=== PATIENT | male | born 1970 | race Caucasian/White ===

== ENCOUNTER 2022-01-28 17:30 | Emergency (ER) | payer SELFPAY ==
[2022-01-28 17:36] VITALS: BP 116/69; PULSE 75; RESP 16; TEMP 36.8; O2SAT 97
--- NOTE | 2022-01-28 17:43 | ED.SKABFB ---
HPI - Skin/Abscess/Foreign Bdy General Chief complaint: Skin/Abscess/Foreign Body Stated complaint: Rash on back Time Seen by Provider: 01/28/22 17:44 Source: patient and RN notes reviewed Mode of arrival: ambulatory Limitations: no limitations History of Present Illness HPI narrative: 51-year-old male presents with concern for rash to his back. He reports approximately 1 week ago noticing a blisterlike rash on the left side of his back. He reports it has since spread to the left lateral side. He denies drainage from the area. Denies pain or itching. He denies any other rash. Denies exposure to plants, poison lluvia. He denies swollen lips, swollen tongue, shortness of breath, nausea, vomiting, fever MD complaint: rash Related Data Allergies Allergy/AdvReac Type Severity Reaction Status Date / Time No Known Allergies Allergy Verified 01/28/22 17:45 Review of Systems Review of Systems: CONSTITUTIONAL: Denies malaise, chills, sweats, or fever. EYES: Denies redness, or discharge. ENT: Denies rhinorrhea, congestion, swollen lips, swollen tongue CARDIOVASCULAR: Denies chest pain, palpitations, or edema. RESPIRATORY: Denies cough or dyspnea. GASTROINTESTINAL: Denies abdominal pain, nausea, vomiting SKIN: Reports rash on his back and left side MUSCULOSKELETAL: Denies joint painor myalgia. NEUROLOGIC: Denies headache. All systems reviewed & are unremarkable except as noted in HPI and below PMFSH Comments At time of signature, agree with nursing past medical, surgical, social and family history. There is no relevant family history pertinent to the presenting complaint Exam Narrative: GENERAL: Well-appearing, well-nourished, and in no acute distress. HEAD: Normocephalic, atraumatic. EYES: PERRLA, conjunctivae clear, and EOMI. ENT: Mucous membranes moist. Oropharynx without edema, erythema or lesions. NECK: Supple. No lymphadenopathy CHEST: Clear to auscultation. No respiratory distress. HEART: Regular rate and rhythm. SKIN: Warm, dry. Zosteriform rash noted to the left side back adjacent to the spine, not crossing midline, another patch of vesicles noted to the left lateral side NEURO: Alert and oriented x3. PSYCH: Normal mood and affect Course Course Emergency Course: Patient is aware of diagnosis, understands and agrees to treatment plan. Anticipatory guidance given. Patient agrees to follow-up as directed and is aware of reasons to seek care at the emergency department. Portions of this record may have been created with voice recognition software Level of Care: Express Care Visit Vital Signs Vital signs: Vital Signs Temperature 98.3 F 01/28/22 17:36 Pulse Rate 75 01/28/22 17:36 Respiratory Rate 16 01/28/22 17:36 Blood Pressure 116/69 01/28/22 17:36 Pulse Oximetry 97 01/28/22 17:36 Oxygen Delivery Room Air 01/28/22 17:36 Temperature 98.3 F 01/28/22 17:36 Pulse Rate 75 01/28/22 17:36 Respiratory Rate 16 01/28/22 17:36 Blood Pressure 116/69 01/28/22 17:36 Pulse Oximetry 97 01/28/22 17:36 Oxygen Delivery Room Air 01/28/22 17:36 Reviewed. MDM - Skin/Abscess/Foreign Bdy MDM Narrative Medical decision making narrative: Does not appear at this time to be erythema multiforme, bullous, SJS, TEN; no evidence at this time to suggest RMSF, endocarditis or Lyme disease; patient looks well, nontoxic and is tolerating oral intake; no neurologic signs or symptoms; no headache, photophobia or neck pain; afebrile; appropriate for initial outpatient treatment; discussed the importance of follow-up, patient agrees; question, viral exanthema, contact dermatitis, allergic dermatitis, eczema, urticaria, shingles. No soft palate or uvula edema, no tongue, lip edema or other mucosal involvement, no respiratory compromise, no stridor, no wheezing, no wheezing, no history of syncope, no hypotension, no nausea, vomiting, or diarrhea. Instructed patient to go to nearest ER immediately for any worse
[2022-01-28 17:46] VITALS: BP 116/69; PULSE 75; RESP 16; TEMP 36.8; O2SAT 97
== END 2022-01-28 17:58 | disposition home or self-care (01) ==
PROVIDERS: Emergency Provider Nurse Practitioner
DX: B02.9 Zoster without complications (principal); E78.00 Pure hypercholesterolemia, unspecified; J45.909 Unspecified asthma, uncomplicated; Z98.52 Vasectomy status
CPT/HCPCS: 99213; G0463

== ENCOUNTER 2022-11-28 18:59 | Emergency (ER) | payer OTHER, SELFPAY ==
--- NOTE | ~2022-11-28 | XR_ITS ---
EXAMINATION: XR shoulder LT min 2V DATE: 11/28/2022 19:30 INDICATION: Left shoulder pain post fall down stairs TECHNIQUE: AP internally and externally rotated, AP oblique externally rotated and axillary views of the left shoulder were obtained. COMPARISON: None FINDINGS: Normal alignment. No fracture.Minimal glenohumeral osteoarthritis. Moderate osteoarthritis at the le ft acromioclavicular joint with large inferiorly directed osteophytes which could predispose towards rotator cuff disease. Visualized portion of the left lung are clear. Soft tissues are unremarkable. IMPRESSION: Moderate left acromioclavicular osteoarthritis with large inferiorly directed osteophytes. No acute o sseous abnormality. Reviewed, dictated and finalized at location A. IMPRESSION: Moderate left acromioclavicular osteoarthritis with large inferiorly directed o steophytes. No acute osseous abnormality.
[2022-11-28 19:01] VITALS: BP 128/72; PULSE 74; RESP 18; TEMP 36.4; O2SAT 97
--- NOTE | 2022-11-28 19:36 | ED.GENADULT ---
HPI - General Adult General Chief complaint: Upper Respiratory Infection Stated complaint: Fall Injury/Left Shoulder Source: patient Mode of arrival: ambulatory Limitations: no limitations History of Present Illness HPI narrative: Patient presents for evaluation of left shoulder pain since yesterday at 0300 after experiencing a fall at home. He states he mistakenly thought he was entering his bathroom when he walked into the basement stairway. He fell down about ten stairs. He hit his head. No LOC. He reports pain and decreased range of motion in the left shoulder. At rest pain is 2/10 severity but increases to 7/10 with movement. Denies paresthesias. He took 400 mg ibuprofen with some improvement in pain thereafter. He is left hand dominant. Related Data Allergies Allergy/AdvReac Type Severity Reaction Status Date / Time No Known Allergies Allergy Verified 01/28/22 17:45 Review of Systems Review of Systems: CONSTITUTIONAL: Denies fever, chills, or sweats. EYES: Denies visual changes, redness, or discharge. ENT: Denies rhinorrhea, congestion, sore throat, or otalgia. CARDIOVASCULAR: Denies chest pain, palpitations, or edema. RESPIRATORY: Denies cough or dyspnea. GASTROINTESTINAL: Denies abdominal pain, nausea, vomiting, or diarrhea. GENITOURINARY: Denies dysuria or hematuria. SKIN: Denies rash or itching. MUSCULOSKELETAL: Reports left shoulder pain and decreased range of motion. Denies back pain or myalgia. NEUROLOGIC: Denies headache, numbness, dizziness, or weakness. PSYCHIATRIC: Denies anxiety or depression. [facility] Past Medical History Medical History (Updated 11/28/22 @ 20:03 by CHRISTOPHER Milner, ) Hyperlipidemia Shoulder strain Surgical History Surgical History History of elbow surgery Family History Family History Mother Family history non-contributory Social History Social History Smoking status: Never smoker Substance use: never Gender identity (if verbalized by the patient): Male Sexual Orientation (if Verbalized by the Patient): Straight or Heterosexual Spiritual care concerns: No Exam Narrative: GENERAL: Well-appearing, well-nourished, and in no acute distress. HEAD: Normocephalic, atraumatic. EYES: PERRLA and EOMI. ENT: Nares clear, no rhinorrhea or epistaxis. Mucous membranes moist. Oropharynx without tonsillar hypertrophy exudate or other lesions. Bilateral TMs pearly adames nonbulging NECK: Supple. No adenopathy or masses. No carotid bruits or JVD CHEST: Clear to auscultation. No respiratory distress. No wheezes rales or rhonchi HEART: Regular rate and rhythm. No murmur heard. Normal peripheral pulses. ABDOMEN: Soft, nontender, nondistended, normal active bowel sounds. EXTREMITIES: No tenderness in the left shoulder. No deformity or obvious swelling. There is crepitus with passive range of motion of the left shoulder. He is only able to the elevate the left upper extremity at the shoulder joint to about the umbilicus. 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 NEURO: No focal deficits. Alert and oriented x3. PSYCH: Normal mood and affect. Course Course Emergency Course: This is a 52-year-old male who presented for evaluation of left shoulder pain. X-ray showed arthritic changes. I advised that he should follow-up with orthopedics due to decreased range of motion left shoulder to determine whether additional imaging such as MRI as clinically warranted. He was provided with a sling. Advised on RICE therapy. Will discharge with tramadol. Go to the ER for intractable pain. Patient in agreement plan of care Level of Care: Express Care Visit Vital Signs Vital signs: Vital Signs Temperature 36.4 C L 11/28/22 19:01 Pulse Rate 74 11/28/22 19:01 Respiratory Rate
== END 2022-11-28 20:15 | disposition home or self-care (01) ==
PROVIDERS: Emergency Provider Nurse Practitioner
DX: S46.912A Strain of unspecified muscle, fascia and tendon at shoulder and upper arm level, left arm, initial encounter (principal); W10.9XXA Fall (on) (from) unspecified stairs and steps, initial encounter; E78.5 Hyperlipidemia, unspecified
CPT/HCPCS: 73030; 99213; A4565; G0463

== ENCOUNTER 2022-12-16 08:02 | Outpatient (CLI) | payer OTHER, SELFPAY ==
--- NOTE | ~2022-12-16 | MR_ITS ---
MRI of the left shoulder Technique: Axial proton-density fat-sat images, coronal proton density fat-sat and T2 fat-sat images, and sagittal T1-weighted and T2 fat-sat images were acquired. Clinical History: Injury Findings: There is advanced degenerative changes AC joint, with large subacromial spur as well as bon y productive change at the inferior margin of the distal clavicle. Cortical clavicular, coracoacromia l, and coracohumeral ligaments appear intact. There are complete, full-thickness tears involving the entirety of the supraspinatus and extending ju st tendons, which are retracted to the level of glenoid. Fluid-filled gap measures approximately 4.0 x 4.3 cm in extent. Subscapularis tendon demonstrates Glenoid labrum is intact, without evidence of tear. Inferior glenohumeral ligament is intact. Small glenohumeral joint effusion is present, with fluid pa ssing through the rotator cuff defect into the subacromial/subdeltoid bursa. No muscle atrophy or leah ma evident. Humeral head is high riding. There is mild chondral malacia the medial humeral head. Prob able low-grade partial thickness articular surface tear. Tendon of the long head of the biceps is int act. Impression: Complete, full-thickness tears of the entirety of the supraspinatus and infraspinatus tendons, as det farrah above. Associated high riding humeral head. Low-grade partial thickness articular surface tear of the subscapularis tendon. Advanced AC joint degenerative change, as detailed above. Reviewed, dictated and finalized at location . Impression: Complete, full-thickness tears of the entirety of the supraspinatus and infrasp inatus tendons, as detailed above. Associated high riding humeral head. Low-grade partial thickness articular surface tear of the subscapularis tendon. Advanced AC joint degenerative change, as detailed above.
== END 2022-12-16 08:03 | disposition home or self-care (01) ==
PROVIDERS: Visit Provider Orthopaedic Surgery
DX: M75.122 Complete rotator cuff tear or rupture of left shoulder, not specified as traumatic (principal); M19.012 Primary osteoarthritis, left shoulder
CPT/HCPCS: 73221

== ENCOUNTER 2023-08-10 15:27 | Emergency (ER) | payer OTHER, SELFPAY ==
[2023-08-10 15:34] VITALS: BP 120/70; PULSE 107; RESP 16; TEMP 37.9; O2SAT 95
--- NOTE | 2023-08-10 15:57 | ED.GENADULT ---
HPI - General Adult General Chief complaint: Upper Respiratory Infection Stated complaint: cough/sneeze/sob Source: patient, RN notes reviewed and old records reviewed Mode of arrival: ambulatory Limitations: no limitations History of Present Illness HPI narrative: 53-year-old male presents to [facility] with complaint of sinus congestion, sinus pressure, cough for over a week. Patient taking [id number] medications with no relief. Patient states nasal discharge is blood tinged. MD complaint: Sinus congestion, pain Onset (ago): week(s) (1) Related Data Allergies Allergy/AdvReac Type Severity Reaction Status Date / Time No Known Allergies Allergy Verified 08/10/23 15:45 Review of Systems Constitutional: Constitutional: Reports no additional constitutional complaints, Denies body ache(s), Denies chills, Denies fatigue, Denies fever(s) and Denies headache(s) Eyes: Eyes: Reports no additional eye complaints and Denies blurry vision ENT: Reports system reviewed and no additional complaints, except as documented, Denies vertigo, Denies dizziness, Denies ear discharge, Denies otalgia, Denies facial pain, Denies headache(s), Reports nasal congestion, Reports nasal discharge ( blood tinged), Reports sinus pain, Reports sinus pressure and Denies sore throat Cardiovascular: Cardiovascular: Reports no additional cardiovascular complaints, Denies chest pain, Denies chest pain at rest, Denies rapid heart rate and Denies dyspnea Respiratory: Respiratory: Reports no additional respiratory complaints, Reports chest congestion, Reports cough, Denies pain on inspiration, Denies pain with cough and Denies dyspnea Gastrointestinal: Gastrointestinal: Denies abdominal pain, Denies diarrhea, Denies nausea and Denies vomiting Integumentary/Breasts: Skin/Breast: Denies rash Neurologic: Reports system reviewed and no additional complaints, except as documented, Denies vertigo, Denies dizziness and Denies headache(s) Endocrine: Endocrine: Denies fatigue PMFSH Past Medical History Medical History Hyperlipidemia Shoulder strain Surgical History Surgical History History of elbow surgery Family History Family History Mother Family history non-contributory Unknown Asthma Social History Social History Smoking status: Never smoker Substance use: never Gender identity (if verbalized by the patient): Male Sexual Orientation (if Verbalized by the Patient): Straight or Heterosexual Spiritual care concerns: No Comments At the time of my signature, I reviewed and agree with the nursing past medical, surgical, social, and family history. There is no relevant family history pertinent to the patient complaint. Exam Const: General: cooperative, healthy appearing, no acute distress and well nourished Nutritional Appearance: well nourished Orientation/consciousness: patient oriented x3 Limitations: no limitations HENMT: Head: normal to inspection and normocephalic Ears: external ears normal, TM's normal bilaterally, mastoids normal and Abnormal EAC present Face/Nose/Sinus: Abnormal mucous membranes and turbinates present boggy and erythematous and normal facial exam Face and sinus: normal facial exam and sinus tenderness Mouth: Yes Normal oral and palatal mucosa present, Yes oropharynx normal and Yes moist mucous membranes Throat: tonsils normal, uvula midline and no uvular edema Eyes: General: appearance normal, both eyes and all related structures Sclera: sclerae normal Pupils: Equal, round and reactive pupils present Resp: Effort & Inspection: normal respiratory effort, able to speak in complete sentences, no audible wheezes, no cough, no respiratory distress and no retractions Auscultation: clear to ausc
== END 2023-08-10 16:05 | disposition home or self-care (01) ==
PROVIDERS: Emergency Provider Registered Nurse
DX: J01.90 Acute sinusitis, unspecified (principal); E78.5 Hyperlipidemia, unspecified
CPT/HCPCS: 99213; G0463

== ENCOUNTER 2023-12-09 13:53 | Emergency (ER) | payer OTHER, SELFPAY ==
--- NOTE | 2023-12-09 13:55 | ED.BACK ---
HPI - Back Pain/Injury General Chief Complaint: Back Pain/Injury Stated Complaint: back pain Time Seen by Provider: 12/09/23 14:02 Source: patient, RN notes reviewed and old records reviewed Mode of arrival: ambulatory Limitations: no limitations History of Present Illness HPI Narrative: 53-year-old male presents to the [facility] with complaints of back pain. Patient reports left lower back pain. Was reaching while working on a car today between 1230 and 1:00pm when he reached felt a strain in the left lower back. No loss retention by bladder. No midline tenderness. No erythema, ecchymosis. No direct trauma. Walks with a normal gait. No numbness or tingling in extremities Did take ibuprofen Onset (ago): hour(s) (1-2) Related Data Allergies Allergy/AdvReac Type Severity Reaction Status Date / Time No Known Allergies Allergy Verified 12/09/23 14:18 Review of Systems Review of Systems: All systems reviewed & are unremarkable except as noted in HPI and below Constitutional: Constitutional: Reports no additional constitutional complaints Eyes: Eyes: Reports no additional eye complaints ENT: Reports system reviewed and no additional complaints, except as documented Cardiovascular: Cardiovascular: Reports no additional cardiovascular complaints, Denies chest pain and Denies dyspnea Respiratory: Respiratory: Reports no additional respiratory complaints, Denies chest congestion, Denies cough and Denies dyspnea Gastrointestinal: Gastrointestinal: Reports no additional gastrointestinal complaints, Denies abdominal pain, Denies nausea and Denies vomiting Musculoskeletal: Musculoskeletal: Reports as per HPI and Reports back pain Integumentary/Breasts: Skin/Breast: Reports system reviewed and no additional complaints, except as docu Neurologic: Reports system reviewed and no additional complaints, except as documented Psychiatric: Psychiatric: Reports no additional psychiatric complaints Allergic/Immunologic: Allergic/Immunologic: Reports no additional allergic/immunologic complaints PMFSH Past Medical History Medical History Hyperlipidemia Shoulder strain Surgical History Surgical History History of elbow surgery Family History Family History Mother Family history non-contributory Unknown Asthma Social History Social History Smoking status: Never smoker Substance use: never Gender identity (if verbalized by the patient): Male Sexual Orientation (if Verbalized by the Patient): Straight or Heterosexual Spiritual care concerns: No Comments At the time of my signature, I reviewed and agree with the nursing past medical, surgical, social, and family history. There is no relevant family history pertinent to the patient complaint. Exam Const: General: cooperative, healthy appearing, comfortable, no acute distress, well developed, alert and well nourished Nutritional Appearance: well nourished Orientation/consciousness: patient oriented x3 Limitations: no limitations HENMT: Head: normal to inspection Ears: hearing grossly normal bilaterally and external ears normal Face/Nose/Sinus: Normal external nose present, Normal nares present, Normal nasal mucous membranes and turbinates present, normal facial exam and face symmetric Face and sinus: normal facial exam and face symmetric Eyes: General: appearance normal, both eyes and all related structures Alignment and Position: alignment normal Periorbital: periorbital findings normal Pupils: Equal, round and reactive pupils present EOM: EOMs intact bilaterally Neck: Neck: normal visual inspection, full ROM, no lymphadenopathy and no meningeal signs Chest: Chest palpation & inspection: normal inspection of the chest Resp: Effort & Inspe
[2023-12-09 14:02] VITALS: BP 135/72; PULSE 88; RESP 16; TEMP 36.8; O2SAT 96
== END 2023-12-09 14:23 | disposition home or self-care (01) ==
PROVIDERS: Emergency Provider Nurse Practitioner
DX: S39.012A Strain of muscle, fascia and tendon of lower back, initial encounter (principal); X50.9XXA Other and unspecified overexertion or strenuous movements or postures, initial encounter; E78.5 Hyperlipidemia, unspecified
CPT/HCPCS: 99213; G0463

== ENCOUNTER 2024-09-30 16:17 | Emergency (ER) | payer OTHER, SELFPAY ==
--- NOTE | ~2024-09-30 | XR_ITS ---
EXAMINATION: XR foot LT min 3V DATE: 09/30/2024 16:55 INDICATION: Left forefoot pain post slip on latter TECHNIQUE: Dorsoplantar, two oblique and lateral views of the left foot were obtained. COMPARISON: None. FINDINGS: Alignment is normal. No fracture. Minimal to mild polyarticular osteoarthritis at the tarsometatarsal , metatarsophalangeal and interphalangeal joints. Moderate-sized plantar calcaneal spur and tiny enth esopathic ossicle at the distal Achilles tendon. Soft tissues are unremarkable. IMPRESSION: 1. Minimal to mild degenerative skeletal changes in the left foot. No acute osseous abnormality. Reviewed, dictated and finalized at location A. IUM REPRESENTATIVE IMPRESSION: 1. Minimal to mild degenerative skeletal changes in the left foot. No acute oss eous abnormality.
--- OUTSIDE RECORDS SUMMARY | 2024-09-30 16:19 | XMS_ITS | Data Portability ---
Author Organization [facility] Address [address] [place] [address] Care Team Providers Care Websphere Commerce Architect Name Role Phone CHRISTIANO BEY Primary Care Provider Unavailabl e Assessment Encounter Date Assessment Date Assessment LastModified by Organization Details LastModified Time 01/26/2024 01/26/2024 Florentino is a 53 y/o M presenting to the clinic to establish care. [email or web address] Not available 01/26/2024 16:54:47 05/17/2024 05/17/2024 Florentino is a 53 y/o M presenting to the clinic for f/u visit. [email or web address] Not available 05/20/2024 19:10:58 09/21/2024 09/21/2024 Pt's case was discussed w/resident. Documentation was reviewed, and I agree w/resident's note. Dr. Scherer [email or web address] Not available 09/26/2024 10:51:37 Plan of Treatment Reminders Order Date Submit Date Provider Last Modified By Organization Details Last Modified Time Details Appointments None recorded. Lab HbA1c (hemoglobin A1c), blood 2023 L[facility], [address], [place], [address], 08:20:31 microalbumi n/creatinin e, mass ratio, urine 2023 [facility], [address], [place], [address], 08:20:28 CMP, serum or plasma 2023 [facility], [address], [place], [address], 4 08:20:30 lipid panel, serum 2023 024 [facility], [address], [place], [address], 4 08:20:29 HbA1c (hemoglobin A1c), blood 2023 024 [facility], [address], [place], [address], 4 08:24:15 lipid panel, serum 2023 024 [facility], [address], [place], [address], 4 08:24:[address] referral 2024 025 [email or web address] Not available 5 22:11:45 Procedures None recorded. Surgeries None recorded. Imaging None recorded. Medication Orders clobetasol 0.05 % topical cream 2024 025 [id number], [address] [place], [address], 5 22:14:26 metformin 500 mg tablet 2023 024 [facility][id number], [address] [place], [address], 4 12:29:31 triamcinolo ne acetonide 0.5 % topical cream 2023 025 [facility], [address] [place], [address], 5 22:12:26 aspirin 81 mg tablet,thiago yed release 2023 024 [email or web address] [facility], [address] [place], [address], 10:55:14 atorvastati n 40 mg tablet 2023 024 [facility] [address] [place], [address], 16:54:23 triamcinolo ne acetonide 0.1 % topical cream 2023 025 [id number] [address] [place], [address], 22:12:19 Patient TargetsNo targets recorded. Patient Instructions Encounter Date Encounter Id Patient Instructions Last Modified By Organization Details Last Modified Time 01/26/2024 [id number] A healthy lifestyle: care instructions Not available 01/26/2024 16:14:20 I personally saw and examined the patient with the resident. I agree with the note and plan as documented. August Arceo MD. [facility] [email or web address] Not available 01/30/2024 10:42:16 05/17/2024 [id number] A healthy lifestyle: care instructions [email or web address] Not available 05/17/2024 16:54:18 I saw the patien t with the resident. I agree with the resident's assessment and plan as documented Silver Ortega MD [email or web address] Not available 05/17/2024 17:06:27 09/21/2024 [id number] A healthy lifestyle: care instructions [email or web address] Not available 09/24/2024 13:25:51 Reason for Referral Oracle Erp Developer Referral for E czema eczema b/l hands Referring Physician: Max Ramirez, Rubber Thread Spooler, Encounter Date: 09/21/2024 Results Created Date Observation Date Name Description Value Unit Range Abnormal Flag Note LastModifiedBy Organization Detail LastModifiedTime 01/26/20 24 01/27/2024 LIPID PANEL cholesterol, total 318 mg/dL 100-19 9 above high normal Not Available [facility] ([facility]) [address] [place], [address], 01/27/2024 08:24:14 01/26/20 24 01/27/2024 LIPID PANEL triglyceride s 249 mg/dL 0-149 above high normal Not Available [facility] ([facility]) [address] [place], [address], 01/27/2024 08:24:14 01/26/20 24 01/27/2024 LIPID PANEL HDL cholesterol 53 mg/dL >39 Not Available [facility]) [address] [place], [address], 01/27/2024 08:24:14 01/26/20 24 01/27/2024 LIPID PANEL VLDL cholesterol trixie 50 mg/dL 5-40 above high normal Not Available [facility] ([facility]) [address] [place], [address], 01/27/2024 08:24:14 01/26/20 24 01/27/2024 LIPID PANEL LDL chol calc ([facility]) 215 mg/dL 0-99 above high normal Not Available [facility] ([facility]) [address] [place], [address], 01/27/2024 08:24:14 01/26/20 24 01/27/2024 LIPID PANEL LDL calc comment: COMMEN T Consi charles evalu ating for Famil ial Hyper bernie stero lemia (FH), if clini julio indic ated. Not Available [facility] ([facility]) [address] [place], [address], 01/27/2024 08:24:14 01/26/20 24 01/27/2024 HEMOG LOBIN A1C hemoglobin A1C 8.0 % 4.8-5. 6 above high normal Predi abete s: 5.7 - 6.4 Diabe romero: >6.4 Glyce rosette contr ol for adult s with diabe romero: <7.0 Not Available [facility] ([facility]) [address] [place], [address], 01/27/2024 08:24:15 05/19/2005/20/2024 ALBUM IN/CR EAT RATIO , RANDO M UR creatinine, urine 115.2 mg/dL notest ab. Not Available [facility] ([facility]) [address] [place], [address], 05/20/2024 08:20:28 05/19/20 24 05/20/2024 ALBUM IN/CR EAT RATIO , RANDO M UR albumin, urine <3.0 ug/mL notest ab. Not Available [facility] ([facility]) [address], [place], [address], 05/20/2024 08:20:28 05/19/2005/20/2024 ALBUM IN/CR EAT RATIO , RANDO M UR alb/creat ratio <3 Cira l: 0 - 29 Moder ately incre ased: 30 - 300 Sever grace incre ased: >300 Not Available [facility] ([facility]) [address] [place], [address], 05/20/2024 08:20:28 05/19/20 24 05/20/2024 LIPID PANEL cholesterol, total 200 mg/dL 100-19 9 above high normal Not Available [facility] ([facility]) [address] [place], [address], 05/20/2024 08:20:29 05/19/20 24 05/20/2024 LIPID PANEL triglyceride s 99 mg/dL 0-149 Not Available [facility] ([facility]) [address] [place], [address], 05/20/2024 08:20:29 05/19/20 24 05/20/2024 LIPID PANEL HDL cholesterol 50 mg/dL >39 Not Available [facility]) [address] [place], [address], 05/20/2024 08:20:29 05/19/20 24 05/20/2024 LIPID PANEL VLDL cholesterol trixie 18 mg/dL 5-40 Not Available [facility] ([facility]) [address], [place], [address], 05/20/2024 08:20:29 05/19/20 24 05/20/2024 LIPID PANEL LDL chol calc ([facility]) 132 mg/dL 0-99 above high normal Not Available [facility] ([facility]) [address] [place], [address], 05/20/2024 08:20:29 05/19/20 24 05/20/2024 CMP14 +EGFR glucose 132 mg/dL 70-99 above high normal Not Available [facility] ([facility]) [address], [place], [address], 05/20/2024 08:20:30 05/19/20 24 05/20/2024 CMP14 +EGFR BUN 20 mg/dL 6-24 Not Available [facility] ([facility]) [address], [place], [address], 05/20/2024 08:20:30 05/19/20 24 05/20/2024 CMP14 +EGFR creatinine 1.03 mg/dL 0.76-1 .27 Not Available [facility] ([facility]) [address], [place], [address], 05/20/2024 08:20:30 05/19/20 24 05/20/2024 CMP14 +EGFR eGFR 86 mL/mi n/1.7 3 >59 Not Available [facility] ([facility]) [address] [place], [address], 05/20/2024 08:20:30 05/19/20 24 05/20/2024 CMP14 +EGFR BUN/creatini ne ratio 19 9-20 Not Available [facility] ([facility]) [address], [place], [address], 05/20/2024 08:20:30 05/19/2005/20/2024 CMP14 +EGFR sodium 143 mmol/ L 134-14 4 Not Available [facility] ([facility]) [address], [place], [address], 05/20/2024 08:20:30 05/19/20 24 05/20/2024 CMP14 +EGFR potassium 4.8 mmol/ L 3.5-5. 2 Not Available [facility] ([facility]) [address], [place], [address], 05/20/2024 08:20:30 05/19/20 24 05/20/2024 CMP14 +EGFR chloride 106 mmol/ L 96-106 Not Available [facility] ([facility]) [address], [place], [address], 05/20/2024 08:20:30 05/19/20 24 05/20/2024 CMP14 +EGFR carbon dioxide, total 23 mmol/ L 20-29 Not Available [facility] ([facility]) [address], [place], [address], 05/20/2024 08:20:30 05/19/20 24 05/20/2024 CMP14 +EGFR calcium 9.5 mg/dL 8.7-10 .2 Not Available [facility] ([facility]) [address] [place], [address], 05/20/2024 08:20:30 05/19/20 24 05/20/2024 CMP14 +EGFR protein, total 7.2 g/dL 6.0-8. 5 Not Available [facility] ([facility]) [address] [place], [address], 05/20/2024 08:20:30 05/19/20 24 05/20/2024 CMP14 +EGFR albumin 4.6 g/dL 3.8-4. 9 Not Available [facility] ([facility]) [address] [place], [address], 05/20/2024 08:20:30 05/19/20 24 05/20/2024 CMP14 +EGFR globulin, total 2.6 g/dL 1.5-4. 5 Not Available [facility] ([facility]) [address] [place], [address], 05/20/2024 08:20:30 05/19/2005/20/2024 CMP14 +EGFR bilirubin, total 0.6 mg/dL 0.0-1. 2 Not Available [facility] ([facility]) [address] [place], [address], 05/20/2024 08:20:30 05/19/2005/20/2024 CMP14 +EGFR alkaline phosphatase 131 IU/L 44-121 above high normal Not Available [facility] ([facility]) [address] [place], [address], 05/20/2024 08:20:30 05/19/2005/20/2024 CMP14 +EGFR AST (SGOT) 33 IU/L 0-40 Not Available [facility] ([facility]) [address] [place], [address], 05/20/2024 08:20:30 05/19/2005/20/2024 CMP14 +EGFR ALT (SGPT) 41 IU/L 0-44 Not Available [facility] ([facility]) [address] [place], [address], 05/20/2024 08:20:30 05/19/2005/20/2024 HEMOG LOBIN A1C hemoglobin A1C 7.2 % 4.8-5. 6 above high normal Predi abete s: 5.7 - 6.4 Diabe romero: >6.4 Glyce rosette contr ol for adult s with diabe romero: <7.0 Not Available [facility] ([facility]) [address], [place], [address], 05/20/2024 08:20:31 Result Notes None recorded. Problems Name Problem SNOMED Code Status Onset Date Resolution Date Notes Provider Name and Address Organization Details Recorded Time Type 2 diabetes mellitus 11908733 Active 2023 Silver Ortega MD Attn: Accounting ,[address] [facility], [place], [address] , [facility] 16:59:14 Hyperlipidemia 36545553 Active 2023 Silver Ortega MD Attn: Accounting ,[address] [facility], [place], [address] , [facility] 4 16:59:12 Eczema 47003969 Active 2023 Christiano Bey MD Attn: Accounting ,[address] [facility], [place], [address] , [facility] 18:56:47 Problem Notes None recorded. Procedures Surgical History Date Name Laterality Status Provider Name and Address Organization Details Recorded Time 3 procedure on shoulder completed Shabnam Escudero MA [facility] 09/21/2024 17:13:35 Elbow arthroscopy completed Swapna Khoury MA [facility] 01/26/2024 14:53:54 Vasectomy completed Swapna Khoury MA [facility] 01/26/2024 14:54:07 Imaging Results None recorded. Procedure Notes None recorded. Medical Equipment None Reported. Allergies No known drug allergies Medications Name Sig Start Date Stop Date Status Note LastModified by Organization Details LastModified Time atorvasta tin 40 mg tablet TAKE 1 TABLET BY MOUTH EVERY DAY FOR 30 DAYS active Not Available Not Available No t Available metformin 500 mg tablet TAKE 1 TABLET BY MOUTH TWICE A DAY 05/29 completed dose increase d to 1000 mg bid Not Available Not Available Not Available triamcino lone acetonide 0.5 % topical cream APPLY THIN COAT TO AFFECTED AREA TWICE A DAY 09/21 completed Not Available Not Available Not Available clobetaso l 0.05 % topical cream APPLY TOPICALL Y TWICE A DAY NEEDED active Not Available Not Available No t Available aspirin 81 mg tablet,de layed release TAKE 1 TABLET BY MOUTH EVERY DAY FOR 30 DAYS active Not Available Not Available No t Available triamcino lone acetonide 0.1 % topical cream APPLY THIN COAT TO AFFECTED AREA TWICE A DAY 09/21 completed Not Available Not Available Not Available Mapap (acetamin ophen) 500 mg capsule TAKE 2 TABLETS (1,000 MG TOTAL) BY MOUTH EVERY 6 HOURS 01/25 completed Not Available Not Available Not Available baclofen 10 mg tablet TAKE 1 TABLET BY MOUTH THREE TIMES A DAY NEEDED FOR MUSCLE PAIN 01/25 completed Not Available Not Available Not Available metformin 1,000 mg tablet TAKE 1 TABLET BY MOUTH TWICE A DAY active Not Available Not Available No t Available ibuprofen 600 mg tablet TAKE 1 TABLET BY MOUTH THREE TIMES A DAY NEEDED FOR PAIN OR FEVER 01/25 completed Not Available Not Available Not Available fluticaso ne propionat e 50 mcg/actua tion nasal spray,koko pension SPRAY 1 SPRAY BY INTRANAS AL ROUTE EVERY DAY FOR 30 DAYS active Not Available Not Available No t Available loratadin e 10 mg tablet TAKE 1 TABLET BY MOUTH EVERY DAY active Not Available Not Available No t Available amoxicill in 875 mg-potass ium clavulana te 125 mg tablet TAKE 1 TABLET BY MOUTH EVERY 12 HOURS FOR 10 DAYS 01/25 completed Not Available Not Available Not Available oxycodone 5 mg tablet TAKE 1 TO 2 TABLETS (5-10 MG TOTAL) BY MOUTH EVERY 4 HOURS NEEDED FOR PAIN 01/25 completed Not Available Not Available Not Available Vitals Date Recorded Body height Body mass index (BMI) Body weight Body temperature Heart rate Respiratory rate Systolic blood pressure Diastolic blood pressure Provider Name and Address Organization Details Last Updated DateTime 4 157.48 cm 31.2 kg/m2 51748.8 g 98.6 [degF] 68 /min 18 /min 128 mm[Hg] 80 mm[Hg] Swapna Khoury MA [place] [facility] 4 14:53:30 Date Recorded Body height Body mass index (BMI) Body weight Body temperature Respiratory rate Oxygen saturation Oxygen saturation in Arterial blood by Pulse oximetry Heart rate Systolic blood pressure Diastolic blood pressure Provider Name and Address Organization Details Last Updated DateTime 4 157.48 cm 30.4 kg/m2 88363.0 8 g 97.9 [degF] 18 /min 96 % 96 % 93 /min 132 mm[Hg] 75 mm[Hg] Patricia Anton MA [facility] 16:13:42 Date Recorded Body height Body mass index (BMI) Body weight Heart rate Body temperature Respiratory rate Oxygen saturation Oxygen saturation in Arterial blood by Pulse oximetry Systolic blood pressure Diastolic blood pressure Provider Name and Address Organization Details Last Updated DateTime 5 157.48 cm 29.6 kg/m2 38642.3 1 g 80 /min 97.7 [degF] 16 /min 96 % 96 % 95 mm[Hg] 69 mm[Hg] Shabnam Escudero MA [facility] 17:15:43 Social History Question Answer Notes LastModified by Organizat ion Details LastModified Time Tobacco Smoking Status Never Smoker Swapna Khoury MA null, [facility] 01/26/2024 14:52:25 Do You Have An Advance Directive? No Information n ot available 09/21/2024 What Is Your Level Of Alcohol Consumption? Occasional Information not available 05/17/2024 In The 14 Days Before Symptom Onset, Have You Had Close Contact With A Laboratory-confirm ed COVID-19 While That Case Was Ill? No Information n ot available 09/21/2024 In The 14 Days Before Symptom Onset, Have You Had Close Contact With A Person Who Is Under Investigation For COVID-19 While That Person Was Ill? No Information not available 09/21/2024 Have You Been To An Area Known To Be High Risk For COVID-19? No Information not available 09/21/2024 Are You Currently Employed? 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 09/21/2024 Information not available 09/21/2024 What Is Your Relationship Status? Single Information not available 09/21/2024 Do You Have Smoke And Carbon Monoxide Detectors In Your Home? Yes Information not available 05/17/2024 Are You Passively Exposed To Smoke? No Information no t available 05/17/2024 Do You Use Any Illicit Or Recreational Drugs? No Information not available 05/17/2024 Has Tobacco Cessation Counseling Been Provided? No Information not available 09/21/2024 On What Date Was Tobacco Cessation Counseling Provided? 09/21/2024 Information not available 09/21/2024 Do You Or Have You Ever Used Any Other Forms Of Tobacco Or Nicotine? No Information not available 09/21/2024 Sex: Male Functional Status None recorded. Mental Status None recorded. Family History Nothing Reported Notes:no new reported 4, 09/21/24 Medical History Condition Response Coronary Artery Disease N Other N High Blood Pressure N Atrial Fibrillation N Kidney or Bladder Problems N Thyroid Problems N GI Problems N Depression N COPD N Blood Clots N Skin Problems N Anemia N Heart Attack (MD) N Anxiety Disorder N Diabetes N Muscle, Joint, or Bone Problems N Seizures/Epilepsy N Acid Reflux (GERD) N Cancer N Stroke N Asthma N Allergies N High Cholesterol N Hepatitis N Liver Disease N Headaches N Heart Failure N Osteoporosis N Past Encounters Encounter ID Performer Location Encounter Start Date Encounter Closed Date Diagnosis/Indication Diagnosis SNOMED-CT Code Diagnosis ICD10 Code Diagnosis Note [id number] Nicky Arceo MD [place] [address] [facility] [address] [place] [address] 01/26/2024 14:23:52 01/30/2024 13:53:45 Obesity 855169225 E66.8 Discussed lifestyle modificati ons including diet and exercise.W as previously diagnosed with hyperlipid emia and was on medication s for it. Has not been taking for over 15 years.-Carrie ck lipid panel-Chec k A1c Eczema 26251845 L30.9 Atopic dermatitis of the hands bilaterall y.-Advised pt to keep hands moisturize d-Rx for triamcinol one 0.1% cream sent, to be used twice daily-RTC/ call in if no improvemen t Colon canc er screening declined [id number] 9109 Z53.20 Discussed benefits of colon cancer screening. Risks discussed of no screening. Patient elects to defer screening at this time. [id number] MD Tracey Ramirez 14 [address] [facility] [address] [place] [address] 05/17/2024 15:55:53 05/31/2024 14:02:56 Obesity 608663168 E66.9 Hyperlipidemia 07572482 E78.5 ASCVD risk very high. 69% lifetime risk. Recommend High intensity statin (atorvasta tin 40 mg).10 year risk decreases to 11.7% with addition of statin, and 10.5% with addition of aspirin on top.Tolera ting atorvastat in 40 mg and ASA 81 mg-continu e Atorvastat in 40 mg and Aspirin 81 mg-Check lipid panel, consider increasing atorvastat in to 80 mg if still not at goal. Type 2 marium betes mellitus 48080345 E11.9 A1c 8.0 at last visitCurre ntly on metformin 500 mg BID and tolerating .-Check A1c, CMP and alb/Cr ratio to monitor renal function- continue metformin 500 mg BID, consider increasing dose if A1c remains above 7.2-perfor m diabetic foot exam, and refer for eye exam at next visit.-f/u 3 months Eczema 05856271 L30.9 Atopic dermatitis of the hands bilaterall y. Mildly improved, however still has erythema and cracking of the skin. No concern for cellulitis /infection at this time.-Advi sed pt to keep hands moisturize d, use moisturize r at least twice daily, Cerave moisturize r samples given to the patient-Rx for triamcinol one 0.5% cream sent, to be used twice daily [id number] MD Tracey Mae 14 IM [address] [facility] [address] [place] [address] 09/21/2024 16:55:53 09/27/2024 13:46:13 Eczema 94404074 L30.9 Chronic. Uncontroll ed. Highly resistant to any primary care discussion s. Attempted to inform Pt he is w/o a maintenanc e regiment.P jaxon:Derm referral.T rial of alternate clobetasol 0.05%provi ded samples of cerave atopic dermatitis cream.f/u 3 mo in the interim.re turn precaution s given Body mass index 25-29 - overweight 724940882 Z68.29 BMI 29Plan:Rec ommend continued lifestyle modificati ons & exercise >150mins/w k Health Concerns Section Related Observation LastModified by Organization Detai ls LastModified Time None Recorded Concern Status LastModified by Organization Details LastModified Time None Recorded Advance Directives Directive N: Payers Encounter Date Sequence Insurance Name Policy Number Policy Peterson Covered Member ID Peterson Member ID Guarantor Name 01/26/2024 1 [employer] (POS) [id number] Adeel Lemus Henrique [id number] Florentino Lemus [place] 05/17/2024 1 [employer] (POS) [id number] Adeel Lemus Henrique [id number] Florentino Lemus [place] 09/21/2024 1 [employer] (POS) [id number] Adeel Lemus [place] [id number] Florentino Lemus [place] Notes Date Note Type Note Provider Name and Address Organization Details Recorded Time 01/26/2024 text/html Florentino is a 53 y /o M presenting to the clinic to establish care. Patient also has a rash on the dorsum of the b/l hands which started about a month ago. He has had it previously. Rash was initially itchy and painful. Has slightly improved. His skin also was cracked open. No recent changes in soaps or detergent. 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 Uses a gritty soap to remove the grease. Pt has no other complaints at this time denying headache, fever, chills, cough, chest pain, palpitations, abdominal discomfort, nausea, vomiting, diarrhea, constipation, increase in urination frequency/dysuria. Past Medical HistoryAllergies: noneMedications: nonePMH: dyslipidemia, last had bw done 10-15 years agoPSH: Shoulder surgery Lt., elbow over 10 years ago. 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 Has started atorvastatin 40 mg, aspirin 81 mg, and metformin 500 mg bid, and has been tolerating them well with no concerns. He feels well and has no complaints at this time. Does report that the eczema is not clearing up, has slightly improved. He reports compliance with 0.1% triamcinolone cream twice daily. He has not been moisturizing with daily moisturizer. Continues to have cracking of the skin. Silver Ortega MD Attn: Accounting,[address] [facility], [place], [address], [facility] 05/31/2024 10:55:50 09/21/2024 text/html 54 M h/o DM2, at [facility] derm & HLD presenting for f/u. former Abbas Pt. 1st encounter w/ PtExpressing frustration. States mltp GPs. States s/p emoliant. States tried different doses of steroid cream. States already w/ skin routine. Doesn't cream or use lotion for maintenance. Showers daily. [employer]. Gloves for work. Using steroid cream, nothing working. States a previous walking clinic even tried scabbies Tx.Expressing more frustration.Salazar alvarado, has an area on his LLE Olegario Scherer MD Attn: Accounting,[address] [facility], [place], [address], [place] [facility] 09/26/2024 10:51:56
--- OUTSIDE RECORDS SUMMARY | 2024-09-30 16:20 | XMS_ITS | Patient Health Summary ---
Author Organization [facility] Address [address] [place] [address] Care Team Providers Care Consulting Sales Executive Name Role Phone Unavailable Primary Care Provider Unavailabl e Note from [facility],non-owned Affiliates and Associated Physician Practices is amultiple site organization consisting of ambulatory clinics and hospital sitesin [place], [place], [place] and [place]. This disclosure is being madepursuant to the Care Everywhere program and may not contain all information available regarding this patient. Last updated 18.[facility] Allergies No known active allergies Medications * Be aware that medications may not be up to date on this document. Alwaysverify current medications with the patient. * Sulfamethoxazole-Trimethoprim (SULFAMETHOXAZOLE-TMP DS PO) Take by mouth once daily. Was from a previous prescription * hydrocodone-acetaminophen (NORCO) 5-325 MG tablet Take 1 Tab by mouth every 4 hours as needed for Pain. * methylPREDNISolone (MEDROL DOSEPAK) 4 MG tablet(Started 05/12/2014) Take by mouth as directed. Social History Tobacco Use Types Packs/Day Years Used Date Smoking Tobacco: Never Alcohol Use Standard Drinks/Week Comments Yes 0 (1 standard drink = 0.6 oz pur e alcohol) occasional Sex and Gender Information Value Date Recorded Sex Assigned at Not on file Gender Identity Not on file Sexual Orientation Not on file Last Filed Vital Signs Vital Sign Reading Time Taken Comments Blood Pressure 124/80 05/12/2014 10:05 AM CDT Pulse 70 05/12/2014 10:05 AM CDT Temperature 36.6 C (97.8 F) 05/12/2014 10:05 AM CDT Respiratory Rate 15 05/12/2014 10:05 AM CDT Oxygen Saturation 97% 05/12/2014 10:05 AM CDT Inhaled Oxygen Concentration - - Weight 65.8 kg (145 lb) 05/12/2014 7:13 AM CDT Height 157.5 cm (5' 2 ) 05/12/2014 7:13 AM CDT Body Mass Index 26.52 05/12/2014 7:13 AM CDT Procedures * XR HAND RIGHT 3VW OR MORE(Performed 05/12/2014) Performed for Injury, other and unspecified, hand, except finger * XR WRIST RIGHT 3VW OR MORE(Performed 05/12/2014) Performed for Injury, other and unspecified, hand, except finger * C-REACTIVE PROTEIN(Performed 05/12/2014) * ERYTHROCYTE SEDIMENTATION RATE(Performed 05/12/2014) * CBC W AUTO DIFFERENTIAL(Performed 05/12/2014) Results * XR RIGHT HAND 3 VIEWS (05/12/2014 8:00 AM CDT) Anatomical Region Laterality Modality Wrist / Hand Radiographic Aleja ging 05/12/2014 8:36 AM CDT Narrative 05/12/2014 8:38 AM CDT Right Hand 3 Views INDICATION: Hand injury. Hand pain. FINDINGS: Soft tissue swelling along the dorsum of the hand. No acute fracture or subluxation/dislocation seen. No radiopaque foreign body or destructive bony lesion. Flexion of the phalanges limits evaluation. Procedure Note Jeremy Lawler MD - 05/12/2014 Right Hand 3 Views INDICATION: Hand injury. Hand pain. FINDINGS: Soft tissue swelling along the dorsum of the hand. No acute fracture or subluxation/dislocation seen. No radiopaque foreign body or destructive bony lesion. Flexion of the phalanges limits evaluation. Man King MD DIAGNOSTIC IMAGING O RDERABLES * XR RIGHT WRIST (05/12/2014 8:00 AM CDT) Anatomical Region Laterality Modality Wrist / Hand Radiographic Aleja ging 05/12/2014 8:38 AM CDT Narrative 05/12/2014 8:39 AM CDT Right Wrist 3 Views INDICATION: Wrist pain. FINDINGS: Extensive soft tissue swelling along the dorsum of the hand. No fracture seen or malalignment. Carpal bone alignment is maintained. No radiopaque foreign body or destructive bony lesion. Procedure Note Jeremy Lawler MD - 05/12/2014 Right Wrist 3 Views INDICATION: Wrist pain. FINDINGS: Extensive soft tissue swelling along the dorsum of the hand. No fracture seen or malalignment. Carpal bone alignment is maintained. No radiopaque foreign body or destructive bony lesion. Man King MD DIAGNOSTIC IMAGING O RDERABLES * (ABNORMAL) C-REACTIVE PROTEIN (05/12/2014 7:42 AM CDT) [facility] C-Reactive Protein 37.20(H) <0.30 mg/dL 05/12/2014 10:11 AM CDT [facility] Blood BLOOD SPECIMEN / Unknown 05/12/2014 7:42 AM CDT 05/12/2014 9:30 AM CDT Man King MD LAB - CHEMISTRY JACOB MENDOZA Performing Organization Address [facility] Co de Phone Number [facility] [address] [place] [address] * (ABNORMAL) SED RATE WESTERGREN (05/12/2014 7:42 AM CDT) [facility] Erythrocyte Sedimentation Rate Westergren 83(H) 0 - 15 mm/hr 05/12/2014 8:24 AM CDT [facility] Blood BLOOD SPECIMEN / Unknown Venipuncture / Unknown 05/12/2014 7:42 AM CDT 05/12/2014 7:51 AM CDT Man King MD LAB - HEMATOLOGY ORD ERABLES Performing Organization Address City/[facility] Co de Phone Number [facility] [address] [place] [address] * (ABNORMAL) CBC W AUTO DIFFERENTIAL (05/12/2014 7:42 AM CDT) [facility] WBC 8.2 4.4 - 10.7 x10^9/L 05/12/2014 8:03 AM CDT [facility] RBC 4.52 3.80 - 5.40 x10^12/L 05/12/2014 8:03 AM CDT [facility] Hemoglobin 13.2 12.0 - 17.6 gm/dL 05/12/2014 8:03 AM [facility] Hematocrit 39.6 35.2 - 51.7 % 05/12/2014 8:03 AM [facility] MCV 87.6 80.7 - 98.3 fl 05/12/2014 8:03 AM [facility] MCH 29.2 26.7 - 34.0 pg 05/12/2014 8:03 AM [facility] MCHC 33.3 30.8 - 35.9 gm/dL 05/12/2014 8:03 AM [facility] Platelet Count 254 153 - 416 x10^9/L 05/12/2014 8:03 AM [facility] RDW-CV 13.3 12.1 - 14.9 % 05/12/2014 8:03 AM [facility] MPV 9.0(L) 9.4 - 12.9 fl 05/12/2014 8:03 AM [facility] Neutrophils % 75.1(H) 44.0 - 73.0 % 05/12/2014 8:03 AM [facility] Lymphocytes % 10.2(L) 20.0 - 43.0 % 05/12/2014 8:03 AM [facility] Monocytes % 10.1 5.0 - 13.0 % 05/12/2014 8:03 AM [facility] Eosinophils % 4.1 0.0 - 6.0 % 05/12/2014 8:03 AM [facility] Basophils % 0.1 0.0 - 2.0 % 05/12/2014 8:03 AM [facility] Immature Granulocytes 0.4 0 - 1 % 05/12/2014 8:03 AM [facility] Neutrophil Absolute 6.04 2.01 - 7.14 x10^9/L 05/12/2014 8:03 AM [facility] Lymphocytes Absolute 0.82(L) 1.07 - 3.94 x10^9/L 05/12/2014 8:03 AM [facility] Monocytes Absolute 0.81 0.26 - 1.07 x10^9/L 05/12/2014 8:03 AM [facility] Eosinophils Absolute 0.33 0 - 0.47 x10^9/L 05/12/2014 8:03 AM CDT [facility] Blood BLOOD SPECIMEN / Unknown Venipuncture / Unknown 05/12/2014 7:42 AM CDT 05/12/2014 7:51 AM CDT Man King MD LAB - HEMATOLOGY ORD ERABLES [facility] [address] [address]
--- OUTSIDE RECORDS SUMMARY | 2024-09-30 16:20 | XMS_ITS | Referral Summary ---
Author Organization [facility] Address [address] [address] Care Team Providers Care Doctor Of Naprapathic Medicine Name Role Phone Unavailable Primary Care Provider Unavailabl e Source Comments [facility],non-owned Affiliates and Associated Physician Practices is amultiple site organization consisting of ambulatory clinics and hospital sitesin [place], [place], [place] and [place]. This disclosure is being madepursuant to the Care Everywhere program and may not contain all information available regarding this patient. Last updated 18.[facility] Allergies No known active allergies Medications * Be aware that medications may not be up to date on this document. Alwaysverify current medications with the patient. Medication Sig Dispensed Refills Start Date End Date Status Sulfamethoxazole-T rimethoprim (SULFAMETHOXAZOLE- TMP DS PO) Take by mouth once daily. Was from a previous prescription Active hydrocodone-acetam inophen (NORCO) 5-325 MG tablet Take 1 Tab by mouth every 4 hours as needed for Pain. Active methylPREDNISolone (MEDROL DOSEPAK) 4 MG tablet Take by mouth as directed. 21 Packet 0 05/12/2014 Active Social History Tobacco Use Types Packs/Day Years [...] Mass Index 26.52 05/12/2014 7:13 AM CDT Plan of Treatment Not on file [id number] Workers Comp Employer [address] [place] [address]
--- OUTSIDE RECORDS SUMMARY | 2024-09-30 16:20 | XMS_ITS | Clinical Summary ---
Author Organization [facility] Address [address] [place] [address] Care Team Providers Care Machine Hoop Maker Name Role Phone Unavailable Primary Care Provider Unavailabl e Source Comments [facility],non-owned Affiliates and Associated Physician Practices is amultiple site organization consisting of ambulatory clinics and hospital sitesin [place], [place] and [place]. This disclosure is being madepursuant to the Care Everywhere program and may not contain all information available regarding this patient. Last updated 18.[facility] Allergies No known active allergies Medications * [...] 05/12/2014 7:13 AM CDT Plan of Treatment Health Maintenance Due Date Last Done Comments COLOGUARD (AGES 45-75) - COL ON CA SCREENING 1969 COLON MONITORING 1969 COLONOSCOPY - COLON CA SCREENING 1969 CT COLONOGRAPHY - COLON CA SCREENING 1969 Colorectal Cancer Screening 1969 FIT - COLON CA SCREENING 1969 FLEX SIG - COLON CA SCREENING 1969 LIPID TESTING 1969 HIV SCREENING 02/09/1984 HEPATITIS C SCREENING 02/04/1987 DTAP/TDAP/TD VACCINES (1 - Tdap) 02/09/1988 HEPATITIS B VACCINE (1 of 3 - 19+ 3-dose series) 02/09/1988 PNEUMOCOCCAL VACCINE 50+ (1 of 1 - PCV) 2019 ZOSTER VACCINE (1 of 2) 2019 COVID-19 VACCINE ( - 2023-2 5 season) 2024 INFLUENZA VACCINE (#1) 2024 DEPRESSION SCREENING 08/15/2024 HIB VACCINE Aged Out No longer eligi ble based on patient's age to complete this topic HPV VACCINE Aged Out No longer eligi ble based on patient's age to complete this topic MENINGOCOCCAL (Group B) VACCINE Aged Out No longer eligible based on patient's age to complete this topic MENINGOCOCCAL VACCINE Aged Out No freddie julissa eligible based on patient's age to complete this topic PNEUMOCOCCAL VACCINE Aged Out No long er eligible based on patient's age to complete this topic [id number] Workers Comp Employer [id number] [place] [address]
--- OUTSIDE RECORDS SUMMARY | 2024-09-30 16:20 | XMS_ITS | Clinical Summary ---
Author Organization [facility] Address [address] [place] [address] Care Team Providers Care Structures Assembler Name Role Phone Kimberley Cha NICHOLE Primary Care Provider [phone] Allergies No known active allergies Medications ibuprofen 200 mg tab/cap Take 1 tablet/capsu le (200 mg total) by mouth as needed for pain Active oxyCODONE (ROXICODONE) 5 mg immediate release tabletIndicatio ns:Pain Take 1-2 tablets (5-10 mg total) by mouth every 4 (four) hours as needed for pain 40 tablet 02/07/2023 Active acetaminophen (TYLENOL) 500 mg tabletIndicatio ns:Pain Take 2 tablets (1,000 mg total) by mouth every 6 (six) hours 60 tablet 1 02/07/2023 Active Active Problems Problem Noted Date Diagnosed Date Left shoulder pain 02/01/2023 Traumatic complete tear of left rotator cuff Psoriasis 03/01/2017 Assessment & Plan (03/01/2017 4:18 PM CDT): Will start with steroid cream. He has quite a few larger patches. I am going to refer him to dermatology for further evaluation. Recommended moisturizing body wash and lotions as well. Mixed hyperlipidemia 03/01/2017 Assessment & Plan (03/01/2017 4:19 PM CDT): Has been off medication for the past 2-3 months due to a job change. We will recheck lipids and restart medication if needed. Surgical History Surgery Date Site/Laterality Comments VASECTOMY 08/15/2002 - 08/14/2003 ELBOW SURGERY 08/15/2002 - 08/14/2003 Left tennis elbow Medical History Medical History Date Comments Asthma Asthma Family History Medical History Relation Name Comments Cancer Paternal Grandmother 2 Cance r, unknown; Cause of : Cancer, unknown Relation Name Status Comments Paternal Grandmother 1 Paternal Grandmother 2 Social History Tobacco Use Types Packs/Day Years Used Date Smoking Tobacco: Never Passive Smoke Exposure: Past Smokeless Tobacco: Never Alcohol Use Standard Drinks/Week Comments Yes 0 (1 standard drink = 0.6 oz pur e alcohol) AUDIT-C Answer Date Recorded Q1: How often do you have a drink containing alc ohol? Monthly or less 02/07/2023 Q2: How many drinks containi ng alcohol do you have on a typical day when you are drinking? 1 or 2 02/07/2023 Q3: How often do you have si x or more drinks on one occasion? Never 02/07/2023 Personal Safety Answer Date Recorded Have you ever been in or are you currently in a harmful physical or emotional relationship or is someone making you feel afraid or unsafe? 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 Gender Identity Not on file Sexual Orientation Not on file Obstetrics History Last Filed Vital Signs Vital Sign Reading Time Taken Comments Blood Pressure 110/74 02/07/2023 1:30 PM CDT Pulse 73 02/07/2023 1:30 PM CDT Temperature 36.5 C (97.7 F) 02/07/2023 12:40 PM CDT Respiratory Rate 17 02/07/2023 1:30 PM CDT Oxygen Saturation 92% 02/07/2023 1:30 PM CDT Inhaled Oxygen Concentration - - Weight 72.6 kg (160 lb) 02/01/2023 4:07 PM CDT Height 157.5 cm (5' 2 ) 02/01/2023 4:07 PM CDT Body Mass Index 29.26 02/01/2023 4:07 PM CDT Plan of Treatment Health Maintenance Due Date Last Done Comments Colon Cancer Screening-Colonoscopy 1969 Hepatitis C Screening 1969 Prostate Cancer Screening-PSA 1969 DTaP/Tdap/Td Vaccine (1 - Tdap) 02/09/1980 Hepatitis B Screening 1987 Regular Well Visit/Exam 18-64 1987 Depression Screening 12/05/2018 12/05/2017, 03/01/2017 Zoster Vaccine (1 of 2) 2019 Covid-19 Vaccine (2023-2 5 season) 2024 06/13/2021, 05/20/2021 Influenza Vaccine (#1) 2024 Pneumococcal vaccine <65 Aged Out No longer eligible based on patient's age to complete this topic Medical Devices Implanted Type Area Aircraft Powertrain Repairer Device Identifier Shelf Expiration Date Model / Serial / Lot [employer] Suture [place] Triple Loaded Knotless Fibertak 2.6mm Ar-3633sp - [id number] Implanted:Qty : 1 on 02/07/2023 by Virgilio Ann MD at [facility] Left: Shoulder [employer] [id number] 09/14/2027 AR-[id number] / / [id number] [employer] Fiberloop 3.2mm Drill Pin Needle Shoehorn Cannula Kit Suture Ar-2290 - [id number] Implanted:Qty : 1 on 02/07/2023 by Virgilio Ann MD at [facility] Left: Shoulder [employer] [id number] 11/13/2027 AR-2290 / / [id number] [place] [address] [facility] [place] [address] [employer] HMO/[place] [address] [place] [place] [place] [address] [employer] HMO/POS Care Teams Structures Assembler Relationship Specialty Start Date End Date Kimberley Cha NP PCP - General Family Medicine 10/10/17
--- OUTSIDE RECORDS SUMMARY | 2024-09-30 16:20 | XMS_ITS | Referral Summary ---
Author Organization [facility] Address [address] [place] [address] Care Team Providers Care Household Personal Assistant Name Role Phone Kimberley Cha NICHOLE Primary Care Provider [phone] Allergies No known active allergies Medications ibuprofen [...] recheck lipids and restart medication if needed. 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 Left: Shoulder [employer] [id number] 09/14/2027 AR-[id number] / / [id number] [employer] Fiberloop 3.2mm Drill Pin Needle Shoehorn Cannula Kit Suture Ar-2290 - [id number] Implanted:Qty : 1 on 02/07/2023 by Virgilio Ann MD at [facility] Left: Shoulder [employer] [id number] 11/13/2027 AR-2290 / / [id number] Insurance [facility] [place] [address] [facility] [email or web address] HMO/POS AET [email or web address] HMO/POS Care Teams Household Personal Assistant Relationship Specialty Start Date End Date Kimberley Cha NP PCP - General Family Medicine 10/10/17
[2024-09-30 16:24] VITALS: BP 134/72; PULSE 70; RESP 20; TEMP 36.3; O2SAT 96
--- NOTE | 2024-09-30 18:02 | ED.GENADULT ---
HPI - General Adult General Chief complaint: Extremity Injury, Lower Stated complaint: Toe Injury Source: patient Mode of arrival: ambulatory Limitations: no limitations History of Present Illness HPI narrative: Patient presents for evaluation of left foot pain. Symptom onset 09/28/2024. He slipped on the steps of the hot tub at that time, injuring his left foot in the process. He now has bruising to the left foot. Reports pain at rest is 2/10 in severity. With weight-bearing and movement his pain increases to a 5/10. He did have some tingling but that has improved. He is not taking any medication to assist with the symptoms. He does not smoke. Related Data Home Medications ?Medication ?Instructions ?Recorded ?Confirmed ?Last Taken ?Type aspirin 81 mg tablet,delayed mg 09/30/24 Unknown History release atorvastatin 40 mg tablet mg 09/30/24 Unknown History clobetasol 0.05 % topical cream topical 09/30/24 Unknown History loratadine 10 mg tablet mg 09/30/24 Unknown History metformin 1,000 mg tablet mg 09/30/24 Unknown History Allergies Allergy/AdvReac Type Severity Reaction Status Date / Time No Known Allergies Allergy Verified 09/30/24 16:58 Review of Systems Review of Systems: CONSTITUTIONAL: Denies fever, chills, or sweats. EYES: Denies visual changes, redness, or discharge. ENT: Denies rhinorrhea, congestion, sore throat, or otalgia. CARDIOVASCULAR: Denies chest pain, palpitations, or edema. RESPIRATORY: Denies cough or dyspnea. GASTROINTESTINAL: Denies abdominal pain, nausea, vomiting, or diarrhea. GENITOURINARY: Denies dysuria or hematuria. SKIN:Repots bruising to the left foot MUSCULOSKELETAL: Reports pain in left foot. Denies other musculoskeletal pain. NEUROLOGIC: Denies headache, numbness, dizziness, or weakness. PSYCHIATRIC: Denies anxiety or depression. [facility] Past Medical History Medical History (Updated 09/30/24 @ 18:07 by CHRISTOPHER Milner, ) History of prediabetes Shoulder strain Hyperlipidemia Surgical History Surgical History History of elbow surgery Family History Family History Mother Family history non-contributory Unknown Asthma Social History Social History (Reviewed 09/30/24 @ 18:07 by Feliz Barragan, [facility], ) Smoking status: Never smoker Substance use: never Gender identity (if verbalized by the patient): Male Sexual Orientation (if Verbalized by the Patient): Straight or Heterosexual Spiritual care concerns: No Exam Narrative: GENERAL: Well-appearing, well-nourished, and in no acute distress. HEAD: Normocephalic, atraumatic. EYES: PERRLA and EOMI. ENT: Nares clear, no rhinorrhea or epistaxis. Mucous membranes moist. Oropharynx without tonsillar hypertrophy exudate or other lesions. Bilateral TMs pearly adames nonbulging NECK: Supple. No adenopathy or masses. No carotid bruits or JVD CHEST: Clear to auscultation. No respiratory distress. No wheezes rales or rhonchi HEART: Regular rate and rhythm. No murmur heard. Normal peripheral pulses. ABDOMEN: Soft, nontender, nondistended, normal active bowel sounds. EXTREMITIES: There is tenderness to the proximal phalanx of the 5th digit of the left foot. There is tenderness over the distal 2nd and 3rd metatarsals of the left foot. He is able to wiggle all digits of the left foot. He is able to dorsi and plantar flex the left foot. SKIN: There is ecchymosis noted to the medial aspect of the 5th digit of the left foot NEURO: No focal deficits. Alert and oriented x3. PSYCH: Normal mood and affect. Course Course Emergency Course: This is a 54-year-old male who presented for evaluation pain and bruising left foot. X-ray showed proximal phalanx fracture of the 5th digit left foot. Fourth and fifth digits were selena taped together. Pt tolerated well. He declined postop shoe. I recommended he follow up with podiatry. NSAIDs for pain. Advised on RICE Therapy. Go to the ER for intractable pain. Pt in agreement with plan of care. Level of Care: Express Care Visit Vital Signs Vital signs: Vital Signs Temperature 36.3 C L 09/30/24 16:24 Pulse Rate 70 09/30/24 16:24 Respiratory Rate 20 09/30/24 16:24 Blood Pressure 134/72 09/30/24 16:24 Pulse Oximetry 96 09/30/24 16:24 Oxygen Delivery Room Air 09/30/24 16:24 Temperature 36.3 C L 09/30/24 16:24 Pulse Rate 70 09/30/24 16:24 Respiratory Rate 20 09/30/24 16:24 Blood Pressure 134/72 09/30/24 16:24 Pulse Oximetry 96 09/30/24 16:24 Oxygen Delivery Room Air 09/30/24 16:24 Medical Decision Making Vital Signs Vital Signs: Vital Signs Temperature 36.3 C L 09/30/24 16:24 Pulse Rate 70 09/30/24 16:24 Respiratory Rate 20 09/30/24 16:24 Blood Pressure 134/72 09/30/24 16:24 Pulse Oximetry 96 09/30/24 16:24 Oxygen Delivery Room Air 09/30/24 16:24 Temperature 36.3 C L 09/30/24 16:24 Pulse Rate 70 09/30/24 16:24 Respiratory Rate 20 09/30/24 16:24 Blood Pressure 134/72 09/30/24 16:24 Pulse Oximetry 96 09/30/24 16:24 Oxygen Delivery Room Air 09/30/24 16:24 Imaging Data Radiologist's impression: Ordering Physician: Feliz Barragan APRN Date of Service: 09/30/24 Procedure(s): XR foot LT min 3V Accession Number(s): [id number] cc: Feliz Barragan APRN; UNKNOWN,DOCTOR~ ADDENDUMADDENDUM: There is a subtle oblique nondisplaced intra-articular fracture involving the medial condyle of the head of the fifth proximal phalanx. SPORTER DRIVER Addendum Dictated By: Brian Bryant MD Addendum Signed By: <Electronically signed by Brian Bryant MD in OV> 09/30/241746 Addendum Cosigned By: DD/ TD/TT: / EXAMINATION: XR foot LT min 3V DATE: 09/30/2024 16:55 INDICATION: Left forefoot pain post slip on latter TECHNIQUE: Dorsoplantar, two oblique and lateral views of the left foot were obtained. COMPARISON: None. FINDINGS: Alignment is normal. No fracture. 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 Moderate-sized plantar calcaneal spur and tiny enthesopathic ossicle at the distal Achilles tendon. Soft tissues are unremarkable. IMPRESSION: 1. Minimal to mild degenerative skeletal changes in the left foot. No acute osseous abnormality. Discharge Plan Discharge Clinical Impression: Fracture of proximal phalanx of lesser toe of left foot Patient Disposition: Home, Self-Care Condition: Stable Instructions: Antibiotic Form, Toe Fracture (ED) Patient Language: Belizean Prescriptions: No Action atorvastatin 40 mg tablet clobetasol 0.05 % cream TOPICAL aspirin 81 mg tablet,delayed release (DR/EC) metformin 1,000 mg tablet loratadine 10 mg tablet Follow-up/Referrals: Juan David,Gretel Fitzgerald DPM [Non-Staff] - Time of Disposition: 17:51
== END 2024-09-30 17:55 | disposition home or self-care (01) ==
PROVIDERS: Emergency Provider Nurse Practitioner
DX: S92.512A Displaced fracture of proximal phalanx of left lesser toe(s), initial encounter for closed fracture (principal); E78.5 Hyperlipidemia, unspecified; Z79.899 Other long term (current) drug therapy; Z79.84 Long term (current) use of oral hypoglycemic drugs; X58.XXXA Exposure to other specified factors, initial encounter
CPT/HCPCS: 73630; 99214; G0463